=== PATIENT | male | born 1985 | race Caucasian/White ===

== ENCOUNTER 2020-06-03 15:00 | Emergency (ER) | payer SELFPAY ==
[2020-06-03 15:17] VITALS: TEMP 97.9
[2020-06-03] MEDS ORDERED: KETOROLAC TROMETHAMINE INJ 30 MG/ML VIAL IV ONE (16:34)
[2020-06-03] MEDS ORDERED: ONDANSETRON INJ 4 MG/2 ML VIAL IV ONE (16:42)
--- NOTE | 2020-06-03 16:42 | ED.PDOC ---
History of Present Illness - General Chief Complaint: Abdominal Pain Stated Complaint: LLQ abd pain,left flank pain Time Seen by Provider: 06/03/20 15:31 Source: patient Exam Limitations: no limitations - History of Present Illness Timing/Duration: this afternoon Quality: severe Onset Location: LLQ Radiation: none Activites at Onset: none Prior abdominal problems: none Sexual intercourse history: not active Improving Factors: nothing Worsening Factors: nothing Associated Symptoms: denies symptoms Allergies/Adverse Reactions: Allergies NO KNOWN ALLERGY Allergy (Unverified 08/23/12 20:23) Home Medications: Ambulatory Orders Dicyclomine HCl [Bentyl] 20 mg PO TID PRN #15 tab 06/03/20 Ketorolac Tromethamine [Toradol Tabs] 10 mg PO Q4H PRN #15 tab 06/03/20 Promethazine HCl 25 mg PO Q6H PRN #15 tab 06/03/20 Tramadol HCl [Ultram] 50 mg PO Q4H PRN #15 tab 06/03/20 Review of Systems - Review of Systems Constitutional: States: no symptoms reported EENTM: States: no symptoms reported Respiratory: States: no symptoms reported Cardiology: States: no symptoms reported Gastrointestinal/Abdominal: States: no symptoms reported Genitourinary: States: no symptoms reported Musculoskeletal: States: no symptoms reported Skin: States: no symptoms reported Neurological: States: no symptoms reported Endocrine: States: no symptoms reported Past Medical History (General) - Patient Medical History Hx Stroke: No Hx Congestive Heart Failure: No Hx Diabetes: No - Vaccination History Hx Influenza Vaccination: No - Social History Hx Tobacco Use: Yes Family Medical History - Family History Father Family History: Unknown Living Status: Unknown Physical Exam - Physical Exam General Appearance: Alert, Well Developed, Well Groomed, Well Hydrated, Well Nourished Eyes, Ears, Nose, Throat Exam: PERRL/EOMI, normal ENT inspection, TMs normal Neck: non-tender Cardiovascular/Respiratory: regular rate, rhythm, no M/R/G, normal peripheral pulses Gastrointestinal/Abdominal: normal bowel sounds, soft, no organomegaly, tenderness - MILD LLQ Male Genital Exam: normal genitalia, normal prostate, no hernia Departure - Departure Clinical Impression: Abdominal pain Qualifiers: Abdominal location: left lower quadrant Qualified Code(s): R10.32 - Left lower quadrant pain Time of Disposition: 19:14 Disposition: Discharge to Home or Self Care Condition: Poor Departure Forms: ED Discharge - Pt. Copy, Patient Portal Self Enrollment Instructions: DI for Abdominal Pain-Adult, Acute Abdomen (Belly Pain), Adult (DC) Prescriptions: Dicyclomine HCl [Bentyl] 20 mg PO TID PRN #15 tab PRN Reason: ABDOMINAL PAIN Promethazine HCl 25 mg PO Q6H PRN #15 tab PRN Reason: Nausea Ketorolac Tromethamine [Toradol Tabs] 10 mg PO Q4H PRN #15 tab PRN Reason: ABD PAIN Tramadol HCl [Ultram] 50 mg PO Q4H PRN #15 tab PRN Reason: Pain Home Medications: Ambulatory Orders Dicyclomine HCl [Bentyl] 20 mg PO TID PRN #15 tab 06/03/20 Ketorolac Tromethamine [Toradol Tabs] 10 mg PO Q4H PRN #15 tab 06/03/20 Promethazine HCl 25 mg PO Q6H PRN #15 tab 20 Tramadol HCl [Ultram] 50 mg PO Q4H PRN #15 tab 20 Additional Instructions: CLEAR LIQUID DIET ONLY FOR 24 HOURS, ADVANCE TO REGULAR DIET SLOWLY AFTER THAT. RETURN TO ER FOR CONTINUED PAIN OR INABILITY TO KEEP DOWN LIQUIDS.
[2020-06-03] MEDS ORDERED: PROMETHAZINE HCL INJ 25 MG in SODIUM CHLORIDE 0.9% 50ML 50 ML IVPB ONE (18:01)
[2020-06-03] MEDS ORDERED: HYDROmorphone HCL INJ 2 MG/ML VIAL IV ONE (18:02)
--- NOTE | 2020-06-03 18:40 | CT ---
EXAM DESCRIPTION: Abdomen/Pelvis w/Contrast CLINICAL HISTORY:34 years Male, ABD PAIN VOMITING Comparison: CT abdomen and pelvis earlier today TECHNIQUE: Contiguous axial CT images of the abdomen and pelvis were obtained. Sagittal and coronal reformats were reviewed. This exam was performed according to our departmental dose-optimization program, which includes automated exposure control, adjustment of the mA and/or kV according to patient size and/or use of iterative reconstruction technique. FINDINGS: Lung bases: Lung bases are clear. No pleural abnormalities. Liver:Unremarkable. No focal liver lesion. Gallbladder:Unremarkable. No gallstones. No gallbladder wall thickening or pericholecystic fluid. Spleen:Unremarkable Pancreas: Pancreas is unremarkable. Adrenal glands:Within normal limits. Kidneys/ureters: Simple appearing cyst in the right kidney measuring 2.4 x 2.1 cm. No hydronephrosis or nephrolithiasis on either side. Both kidneys enhance symmetrically. Stomach/small bowel/colon: Stomach is unremarkable. Small bowel is unremarkable. Colon is unremarkable. Appendix: No evidence of appendicitis. Peritoneum: No free fluid. Vascular structures: within normal limits Lymph nodes: No abnormal lymph nodes. Bladder: There is mild circumferential wall thickening. No adjacent inflammatory stranding. No gas within the urinary bladder wall on current exam. Pelvic organs: No acute abnormality Bones: No acute osseous abnormality. Soft tissues: Unremarkable.. IMPRESSION: Mild circumferential wall thickening of the urinary bladder may be related to underdistention. Recommend correlation with UA to exclude possibility of cystitis although this is considered less likely. Right renal cyst measuring up to 2.4 cm. No hydronephrosis or nephrolithiasis. Electronically signed by: Westley Noguera DO 06/03/2020 6:38 PM [facility]
[2020-06-03 19:33] VITALS: BP 138/98; O2SAT 97
--- NOTE | 2020-06-05 08:36 | CT ---
EXAM DESCRIPTION: Abdoment/Pelvis w/o Contrast CLINICAL HISTORY: To Rule Out Renal Stones COMPARISON: None Available TECHNIQUE: Contiguous axial images of the abdomen and pelvis were obtained after the administration of intravenous contrast followed by reconstruction images.This exam was performed according to our departmental dose-optimization program, which includes automated exposure control, adjustment of the mA and/or kV according to patient size and/or use of iterative reconstruction technique. FINDINGS: There is a 22 mm nonspecific apparent low-attenuation lesion in the anterior right kidney which is quite subtle. Artifact is possible. Detail is limited without contrast. There is apparent thickening of the urinary bladder wall although it is underdistended. There is also apparent low-attenuation in the anterior urinary bladder wall suggesting gas in the bladder wall but this is also quite subtle. The liver, spleen, pancreas and kidneys are otherwise within normal limits. There is no hydronephrosis. The gallbladder is unremarkable. Adrenal glands are within normal limits. Aorta is normal in caliber and tapering. No significant free fluid. No free air. No bowel obstruction. There is no stranding of the mesenteric fat. The appendix appears normal. No evidence of periappendiceal inflammation. IMPRESSION: Possible right renal lesion and thickening of the urinary bladder wall with gas in the urinary bladder wall. Correlation for cystitis is recommended. Follow-up of the right kidney may also be helpful. Otherwise unremarkable exam. Electronically signed by: Sonido Haile 06/03/2020 4:14 PM [facility]
== END 2020-06-03 19:33 | disposition home or self-care (01) ==
LOC: ER 15:00
DX: R10.32 Left lower quadrant pain (principal); Z87.891 Personal history of nicotine dependence
CPT/HCPCS: 36415; 74176; 74177; 80053; 81001; 83690; 85025; A4216; J1170; J1885; J2405; J2550